=== PATIENT | male | born 1985 | race Caucasian/White ===

== ENCOUNTER 2021-12-27 14:58 | Emergency (ER) | payer OTHER, SELFPAY ==
[~2021-12-27 14:58] MED LIST: Iopamidol 370 76% 100 ML VIAL ONE
[2021-12-27 15:46] LABS: Hemoglobin 15.1 g/dL (14.0-18.0); Mean Corpuscular HGB CONC 31.9 g/dL (32.0-36.0); Mean Corpuscular Hemoglobin 31.7 pg (27.0-31.0); Mean Corpuscular Volume 99.5 fL (78.0-98.0); Mean Platelet Volume 8.2 fL (7.4-10.4); Platelet Count 330 thou/uL (130-400); RBC Distribution Width 12.5 % (11.5-14.5); Red Blood Cell (RBC) Count 4.77 mill/uL (4.70-6.10); White Blood Cell (WBC) Count 25.5 thou/uL (4.8-10.8)
[2021-12-27] MEDS ORDERED: Ondansetron PF 4 MG/2 ML Vial ONE (15:51)
[2021-12-27] MEDS ORDERED: Ketorolac Tromethamine 30 MG/ML VIAL ONE (15:51)
[2021-12-27] MEDS ORDERED: methylPREDNISolone Sod Succ/PF 125 MG/2 ML VIAL ONE (15:51)
[2021-12-27 15:58] LABS: ALT (SGPT) 59 U/L (8-55); AST (SGOT) 44 U/L (5-34); Alkaline Phosphatase 124 U/L (40-110); Anion Gap 25 mmol/L (10-20); BUN (Urea Nitrogen) 5 mg/dL (8.9-20.6); Bilirubin, Total 0.6 mg/dL (0.2-1.2); Calc. Creatinine Clearance 0 mL/min (70-130); Calcium 9.5 mg/dL (7.8-10.44); Carbon Dioxide 18 mmol/L (22-29); Chloride 95 mmol/L (98-107); Globulin 3.8 g/dL (2.4-3.5); Glucose 85 mg/dL (70-105); Potassium 3.9 mmol/L (3.5-5.1); Protein, Total 7.8 g/dL (6.0-8.3); Sodium 134 mmol/L (136-145)
[2021-12-27 16:41] LABS: Eosinophils 1 % (0-10); Lymphocytes 22 % (21-51); MDiff Complete? YES; Manual Diff?? YES; Monocytes 1 % (0-10); Neutrophil 76 % (42-75)
[2021-12-27 16:42] LABS: Platelet Morphology Comment Appears Adequate; RBC Morphology Normal
[2021-12-27] MEDS ORDERED: cefTRIAXone\\ROCEPHIN 2 GM VIAL ONE (16:44)
[2021-12-27] MEDS ORDERED: Azithromycin 500 MG VIAL ONE (16:44)
[2021-12-27] MEDS ORDERED: Sodium Chloride 0.9% 250 ML 250 ML ONE (16:44)
[2021-12-27] MEDS ORDERED: Sodium Chloride 0.9% 1,000 ML ONE (16:44)
[2021-12-27] MEDS ORDERED: Sodium Chloride 0.9% 100 ML ONE (16:44)
[2021-12-27 16:52] LABS: CO2 Tension (PvCO2) 43.1 mmHg (42.0-51.0)
[2021-12-27 16:53] LABS: Base Excess-Venous -3.5 mmol/L (-2.0 to 3.0); Bicarbonate (HCO3v) 22.6 mmol/L (22.0-28.0); vO2 Saturation-calc 33.7 % (60.0-85.0)
[2021-12-27 16:54] LABS: Calcium, Ionized 1.04 mmol/L (1.15-1.33); Chloride 93 mmol/L (98-107); Hemoglobin - Calc 16.6 g/dL (14.0-18.0); Potassium 3.9 mmol/L (3.5-5.1); Sodium 130 mmol/L (138-145); T. Carbon Dioxide 23.9 mmol/L (22.0-28.0)
[2021-12-27 17:02] LABS: Bilirubin Negative (Negative); Blood, Urine Negative (Negative); Clarity Clear (Clear); Glucose, Urine (Dipstick) Negative (Negative); Ketone, Urine 15 mg/dL (Negative); Leukocyte Negative (Negative); Nitrite Negative (Negative); Protein, Urine (Dipstick) Negative (Neg-Trace); Specific Gravity, Urine 1.015 (1.005-1.030); Urobilinogen 0.2 mg/dL (Less than 2)
[2021-12-27 17:44] LABS: SARS-CoV-2 NAA Rapid Test Not Detected (NotDetected)
== END 2021-12-27 18:53 | disposition short-term general hospital (02) ==
LOC: NAV ERS 14:58
DX: A41.9 Sepsis, unspecified organism (principal); R65.20 Severe sepsis without septic shock; J18.9 Pneumonia, unspecified organism; J44.1 Chronic obstructive pulmonary disease with (acute) exacerbation; Z20.822 Contact with and (suspected) exposure to COVID-19; F17.210 Nicotine dependence, cigarettes, uncomplicated
CPT/HCPCS: 36415; 71045; 71275; 80053; 81003; 82330; 82803; 83605; 84484; 85025; 85379; 87040; 87086; 93005; 94760; 96365; 96367; 96375; J0456; J0696; J1885; J2405; J2930; J3490; J7050; J7620; Q9967

== ENCOUNTER 2023-02-16 13:47 | Emergency (ER) | payer SELFPAY ==
[2023-02-16] MEDS ORDERED: Ketorolac Tromethamine 30 MG/ML VIAL ONE (14:24)
[2023-02-16 14:25] LABS: #Basophils 0.1 thou/uL (0.0-0.2); #Eosinphils 0.2 thou/uL (0.0-0.7); #Lymphocytes 3.8 thou/uL (1.20-3.40); #Monocytes 0.9 thou/uL (0.11-0.59); #Neutrophils 3.8 thou/uL (1.40-6.50); %Basophils 1.4 % (0.0-1.0); %Eosinophils 2.5 % (0.0-10.0); %Lymphocytes 43.4 % (21.0-51.0); %Monocytes 9.7 % (0.0-10.0); Hemoglobin 15.5 g/dL (14.0-18.0); Mean Corpuscular HGB CONC 33.2 g/dL (32.0-36.0); Mean Corpuscular Hemoglobin 32.7 pg (27.0-31.0); Mean Corpuscular Volume 98.3 fl (78.0-98.0); Mean Platelet Volume 9.1 fL (7.4-10.4); Platelet Count 161 10x3/uL (130-400); RBC Distribution Width 12.6 % (11.5-14.5); Red Blood Cell (RBC) Count 4.76 mill/uL (4.70-6.10); White Blood Cell (WBC) Count 8.8 10x3/uL (4.8-10.8)
[2023-02-16 14:51] LABS: ALT (SGPT) 67 U/L (8-55); AST (SGOT) 66 U/L (5-34); Albumin 4.5 g/dL (3.5-5.0); Alkaline Phosphatase 62 U/L (40-110); Anion Gap 20 mmol/L (10-20); BUN (Urea Nitrogen) 6 mg/dL (8.9-20.6); Bilirubin, Total 0.3 mg/dL (0.2-1.2); Calc. Creatinine Clearance 0 mL/min (70-130); Calcium 8.9 mg/dL (7.8-10.44); Carbon Dioxide 19 mmol/L (22-29); Chloride 97 mmol/L (98-107); Estimated GFR 119; Globulin 2.7 g/dL (2.4-3.5); Glucose 81 mg/dL (70-105); Potassium 4.1 mmol/L (3.5-5.1); Protein, Total 7.2 g/dL (6.0-8.3); Sodium 132 mmol/L (136-145)
== END 2023-02-16 15:44 | disposition home or self-care (01) ==
LOC: NAV ERS 13:47
DX: S29.011A Strain of muscle and tendon of front wall of thorax, initial encounter (principal); J42 Unspecified chronic bronchitis; F17.210 Nicotine dependence, cigarettes, uncomplicated; X58.XXXA Exposure to other specified factors, initial encounter
CPT/HCPCS: 71046; 80053; 83605; 83880; 84484; 85025; 85379; 87804; 93005; 94760; 96374; 99406; J1885

== ENCOUNTER 2023-10-12 11:10 | Emergency (ER) | payer SELFPAY ==
[2023-10-12] MEDS ORDERED: Ipratropium/Albuterol 3 ML NEB ONE (12:30)
== END 2023-10-12 13:11 | disposition home or self-care (01) ==
LOC: NAV ERS 11:10
DX: J44.1 Chronic obstructive pulmonary disease with (acute) exacerbation (principal); F17.210 Nicotine dependence, cigarettes, uncomplicated
CPT/HCPCS: 71046; 87635; 87804; 87807; 94640; J7620